=== PATIENT | male | born 1995 | race Caucasian/White ===

== ENCOUNTER 2017-05-29 14:53 | Outpatient (RCR) | payer BC ==
[~2017-05-29] VITALS: Ht 182.9 cm; Wt 90.9 kg
[2017-05-29] MEDS ORDERED: NORCO 325 MG-7.1 TA1 PO (15:00)
[2017-05-29 15:02] VITALS: BP 117/67
[2017-05-29 15:56] VITALS: BP 130/67
[2017-05-30 14:54] VITALS: BP 153/87
[2017-05-30 15:28] VITALS: BP 135/64
[2017-05-31 15:15] VITALS: BP 126/67
[2017-05-31 15:50] VITALS: BP 124/70
[2017-06-01 14:57] VITALS: BP 144/80
[2017-06-01 15:27] VITALS: BP 119/73
[2017-06-02 14:55] VITALS: BP 132/72
[2017-06-02 15:34] VITALS: BP 141/83
[2017-06-03 15:00] VITALS: BP 143/74
[2017-06-03 15:50] VITALS: BP 130/77
== END 2017-08-27 | disposition still patient (30) ==
LOC: AMSURD
DX: L08.89 Other specified local infections of the skin and subcutaneous tissue (principal); S66.323D Laceration of extensor muscle, fascia and tendon of left middle finger at wrist and hand level, subsequent encounter; X58.XXXD Exposure to other specified factors, subsequent encounter
CPT/HCPCS: J0696

== ENCOUNTER 2021-03-30 20:24 | Emergency (ER) | payer BC ==
[~2021-03-30 20:24] MED LIST: NORCO 325 MG-7.1 TA1 PO
[2021-03-30] MEDS ORDERED: AUGMENTIN 875-1 EAC1 PO (21:59)
[2021-03-30 22:04] VITALS: BP 152/93
== END 2021-03-30 22:04 | disposition home or self-care (01) ==
LOC: ED 20:24
DX: S01.511A Laceration without foreign body of lip, initial encounter (principal); S01.81XA Laceration without foreign body of other part of head, initial encounter; F17.210 Nicotine dependence, cigarettes, uncomplicated; Z23 Encounter for immunization; W22.8XXA Striking against or struck by other objects, initial encounter
CPT/HCPCS: 90715